=== PATIENT | male | born 2000 | race Two or more races ===

== ENCOUNTER → 2024-03-20 | Emergency (ER) | payer OTHER ==
[~2024-03-20] VITALS: Ht 167.6 cm; Wt 64.4 kg
== END | disposition home or self-care (01) ==
LOC: ER 16:20
DX: R07.89 Other chest pain (principal)

== ENCOUNTER → 2024-04-02 | Emergency (ER) | payer OTHER | END | disposition home or self-care (01) | LOC: ER 03:51 | DX: Z53.21 Procedure and treatment not carried out due to patient leaving prior to being seen by health care provider (principal) ==

== ENCOUNTER 2024-07-17 17:01 | Emergency (ER) | payer OTHER ==
[~2024-07-17] VITALS: Ht 170.2 cm; Wt 64.9 kg
[2024-07-17] MEDS ORDERED: CEFTRIAXONE SODIUM 1,000 MG VIAL IM STA (19:57)
[2024-07-17] MEDS ORDERED: KETOROLAC TROMETHAMINE 30 MG VIAL IM STA (19:57)
== END 2024-07-17 20:49 | disposition home or self-care (01) ==
LOC: ER 17:04
DX: J03.80 Acute tonsillitis due to other specified organisms (principal); Z88.8 Allergy status to other drugs, medicaments and biological substances